=== PATIENT | male | born 1955 | race Caucasian/White ===

== ENCOUNTER 2017-03-05 12:09 | Inpatient (IN) | payer OTHER ==
--- NOTE | ~2017-03-05 | PRECARD ---
H&P [facility] [address] [place]. [address] NAME: FINN OROZCO JR : 53 STATUS : ADM IN [facility]#: [id number] AGE: 61 ADM/REG DATE : 03/05/17 MR#: [id number] REPORT SERV DATE: 03/05/17 DICTATED BY: ERICKA SADLER DATE: 03/05/17 REPORT STATUS : Draft TRANSCRIBED BY: SESAR DATE: 03/05/17 DATE OF ADMISSION: 03/05/2017 CHIEF COMPLAINT: Chest pain. REASON FOR ADMISSION: Chest pain. SOURCE: The patient and chart. HISTORY OF PRESENT ILLNESS: Mr. Orozco is a very pleasant 61-year-old, white man with no prior cardiac history, who was in his usual state of health until the last few days, when he has been feeling bad off and on. Today, he had an episode of wateriness, indigestion, and headache, and blood pressure up to 210/118. He called his , who brought him to the emergency room. He was having chest pain, described as burning substernal up to 4/10 in severity without radiation, associated with nausea, but no vomiting, dyspnea, or diaphoresis. He did have some shortness of breath. He came to [facility] emergency room and was found to have a troponin of 0.76 and was admitted for further care. He reports the pain has gone down to about 2/10 now. He has had some fatigue and shortness of breath. He is comfortable, lying in bed. REVIEW OF SYSTEMS: All other systems are negative. ALLERGIES: NSAIDS, IRRITATED STOMACH. MEDICATIONS: As per his home list include calcium, Celebrex, vitamin D, Flexeril, Benadryl, glucosamine, Atarax, Hyzaar, magnesium, melatonin, Nasonex, Dulera, Percocet, potassium, Lyrica, vitamin B2, Zoloft, vitamin E, garlic, and lipoflavonoids. CARDIAC RISK FACTORS: Include hypertension, cholesterol, former tobacco, and positive family history. Denied diabetes. PAST MEDICAL HISTORY: Significant for stomach ulcers, treated with medications thirty years ago. Kidney stones, requiring surgery, two knee surgeries on each knee, torn meniscus, status post bilateral carpal tunnel release, rotator cuff bilaterally, for or five back surgeries, status post tonsillectomy. No prior cardiac problems. SOCIAL HISTORY: The patient lives in [place]. He is . He has two children, alive, and well. 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 FAMILY HISTORY: Father of congestive heart failure in his 70s, but first had heart disease in his 50s including coronary artery bypass grafting. PHYSICAL EXAMINATION: GENERAL: Well-developed, well-nourished elderly white man, in no acute distress. VITAL SIGNS: Stable. Grossly afebrile. Blood pressure is now 145/94, pulse 73, [facility]P [facility] [address] [facility] [place]. [address] NAME: FINN OROZCO JR : 53 STATUS : ADM IN [facility]#: [id number] AGE: 61 ADM/REG DATE : 03/05/17 MR#: [id number] REPORT SERV DATE: 03/05/17 DICTATED BY: ERICKA SADLER DATE: 03/05/17 REPORT STATUS : Draft TRANSCRIBED BY: SESAR DATE: 03/05/17 temperature 97.2, weight is 102 kg. HEENT: Sclerae anicteric. Lips without cyanosis. Carotids 2+ and symmetrical. No bruits. No JVD. No thyromegaly. LUNGS: Clear to auscultation. No use of accessory muscles. HEART: Regular rate and rhythm without murmur, gallop, or rub. ABDOMEN: Positive bowel sounds. Soft, nontender. Obese. EXTREMITIES: Pulses 2+ and symmetrical. No cyanosis, clubbing, or edema. He has normal Jaxon and reverse Jaxon test in the right arm. BACK: No CVA tenderness. MUSCULOSKELETAL: Good tone. NEURO: Alert and oriented x3. LABORATORY EXAMINATION: Sodium 140, potassium 3.7, chloride 105, CO2 26, glucose 93, BUN 12, creatinine 0.96, troponin of 0.76. He also has an AST 96, ALT 119, alkaline phosphatase 94, total bilirubin 0.7. The chest x-ray, tortuous ectatic aorta, otherwise negative AP portable chest. The BNP is 46. The white count is 5.4, hemoglobin 15.8, hematocrit 44.6, platelets 174,000. INR 1.0. EKG reveals sinus rhythm, normal axis and intervals, LVH by voltage. Nonspecific ST changes. IMPRESSION: 1. Suspected naz-ID-hrtvvyr elevation myocardial infarction. 2. Hypertension, under better control. 3. Hyperlipidemia. 4. Former tobacco use. 5. Family history of coronary artery disease. 6. Obesity. 7. Status post back surgeries. RECOMMENDATIONS: 1. Aspirin, nitrates, heparin already given. 2. Beta blockers, already given. 3. Empiric statin therapy. 4. Cardiac catheterization, possible angioplasty. The risks, benefits, and complications were discussed with the patient. He understands them and those of his alternatives and wishes to proceed. Questions answered. Plan in a.m. If he remains stable, he would be a candidate for the right radial approach. He has normal Jaxon and reverse Jaxon test in the right arm. He would be a candidate for drug-eluting stent if needed. DUTCH/SESAR Ericka Sadler M.D. / [id number] H&P [address] [address] NAME: FINN OROZCO : 53 STATUS : ADM IN [facility]#: [id number] AGE: 61 ADM/REG DATE : 03/05/17 MR#: [id number] REPORT SERV DATE: 03/05/17 DICTATED BY: ERICKA SADLER DATE: 03/05/17 REPORT STATUS : Draft TRANSCRIBED BY: SESAR DATE: 03/05/17 CC: Analilia Bauman M.D.
[2017-03-05 13:15] LABS: BASOPHILS 0.3 %; BASOPHILS ABSOLUTE 0.03 10/3/uL (0.0-0.16); EOSINOPHILS 1.2 %; EOSINOPHILS ABSOLUTE 0.11 10/3/uL (0.0-0.53); ER CBC TAT 0 Hrs 07 Mins; HEMATOCRIT 44.6 % (40.0-51.0); HEMOGLOBIN 15.8 g/dL (13.6-17.8); IMMATURE GRANULOCYTES 0.4 %; IMMATURE GRANULOCYTES ABSOLUTE 0.04 10/3/uL (0.0-0.11); LYMPHOCYTES 24.7 %; LYMPHOCYTES ABSOLUTE 2.33 10/3/uL (0.67-4.30); MEAN CORPUS HGB CONC 35.4 g/dL (32.0-36.0); MEAN CORPUSCULAR HEMOGLOB 34.3 pg (26.0-34.0); MEAN CORPUSCULAR VOLUME 96.7 fL (80-100); MEAN PLATELET VOLUME 10.1 fL (9.2-13.0); MONOCYTES ABSOLUTE 0.94 10/3/uL (0.21-1.20); NEUTROPHILS 63.4 %; NEUTROPHILS ABSOLUTE 5.99 10/3/uL (2.02-8.40); PLATELET COUNT 174 10/3/uL (150-400); RBC DISTRIBUTION WIDTH 12.8 % (12.0-16.0); RED CELL COUNT 4.61 10/6/uL (4.7-6.1); WHITE BLOOD CELLS 9.4 10/3/uL (4.5-10.5)
[2017-03-05 13:16] LABS: MANUAL DIFF NO %
[2017-03-05 13:20] LABS: PROTIME (NOT ORD) 12.9 SEC (12.0-14.5)
[2017-03-05 13:29] LABS: A/G RATIO 1.2 (0.7-1.9); ALBUMIN 4.1 G/DL (3.5-5.0); ALKALINE PHOSPHATASE 94 U/L (45-117); BUN (BLOOD UREA NITROGEN) 12 MG/DL (6-23); CHLORIDE, SERUM 105 MMOL/L (96-112); CO2 (CARBON DIOXIDE) 26 MMOL/L (24-34); CREATININE 0.96 MG/DL (0.70-1.30); GFR AFRICAN AMERICAN 98 ML/MIN (>=60); GFR NON AFRICAN AMERICAN 84 ML/MIN (>=60); GLOBULIN 3.4 G/DL (2.5-4.1); GLUCOSE, SERUM 93 MG/DL (60-99); POTASSIUM, SERUM 3.7 MMOL/L (3.5-5.3); SGOT(AST) 96 U/L (5-40); SGPT(ALT) 119 U/L (5-65); SODIUM, SERUM 140 MMOL/L (135-148); TOTAL BILIRUBIN 0.7 MG/DL (0-1.2); TOTAL PROTEIN 7.5 G/DL (6.0-8.5)
[2017-03-05 13:57] LABS: TROPONIN I 0.76 NG/ML (<0.05)
[2017-03-05] MEDS ORDERED: AT25 PO (14:36)
[2017-03-05] MEDS ORDERED: MELATONIN10 M2 PO (14:37)
[2017-03-05] MEDS ORDERED: CELEBREX2 PO (14:37)
[2017-03-05] MEDS ORDERED: FLEX PO (14:37)
[2017-03-05] MEDS ORDERED: HYZAAR 50/12.51 TAB PO (14:37)
[2017-03-05] MEDS ORDERED: ZOL50 PO (14:37)
[2017-03-05] MEDS ORDERED: DULERA 200 MCG/13 GM INH (14:38)
[2017-03-05] MEDS ORDERED: PERCOCET 10/3251 TAB PO (14:38)
[2017-03-05] MEDS ORDERED: NASONEX NAS (14:38)
[2017-03-05] MEDS ORDERED: VITE PO (14:38)
[2017-03-05] MEDS ORDERED: GLUCCHONDR PO (14:38)
[2017-03-05] MEDS ORDERED: POTASSIUM GLUCO99 MG PO (14:39)
[2017-03-05] MEDS ORDERED: CALTRAT600 PO (14:39)
[2017-03-05] MEDS ORDERED: MAG OXIDE250 MG PO (14:39)
[2017-03-05] MEDS ORDERED: GARLIC PO (14:39)
[2017-03-05] MEDS ORDERED: VITAMIN B-2100 MG PO (14:40)
[2017-03-05] MEDS ORDERED: BEN25 PO (14:40)
[2017-03-05] MEDS ORDERED: LIPOFLAVONOID PO (14:40)
[2017-03-05] MEDS ORDERED: VITAMIN D1000 UNI1 PO (14:40)
[2017-03-05] MEDS ORDERED: LYRICA75 PO (14:41)
[2017-03-05 20:49] LABS: TROPONIN I 5.39 NG/ML (<0.05)
[2017-03-05 21:04] LABS: CK-MB 36.4 NG/ML
[2017-03-05 21:05] LABS: CKMB INDEX (NOT ORD) 9.9
[2017-03-06 06:22] LABS: INTERNATIONAL NORMAL RATI 1.1 UNITS (-); PROTIME (NOT ORD) 13.7 SEC (12.0-14.5)
[2017-03-06 06:23] LABS: PARTIAL THROMBO TIME 69.7 SEC (22.5-37.2)
[2017-03-06 06:25] LABS: BASOPHILS 0.4 %; BASOPHILS ABSOLUTE 0.04 10/3/uL (0.0-0.16); EOSINOPHILS 1.9 %; EOSINOPHILS ABSOLUTE 0.19 10/3/uL (0.0-0.53); HEMATOCRIT 39.6 % (40.0-51.0); HEMOGLOBIN 13.9 g/dL (13.6-17.8); IMMATURE GRANULOCYTES 0.5 %; IMMATURE GRANULOCYTES ABSOLUTE 0.05 10/3/uL (0.0-0.11); LYMPHOCYTES 27.4 %; LYMPHOCYTES ABSOLUTE 2.78 10/3/uL (0.67-4.30); MANUAL DIFF NO %; MEAN CORPUS HGB CONC 35.1 g/dL (32.0-36.0); MEAN CORPUSCULAR HEMOGLOB 34.9 pg (26.0-34.0); MEAN CORPUSCULAR VOLUME 99.5 fL (80-100); MEAN PLATELET VOLUME 9.9 fL (9.2-13.0); MONOCYTES 9.4 %; MONOCYTES ABSOLUTE 0.95 10/3/uL (0.21-1.20); NEUTROPHILS 60.4 %; NEUTROPHILS ABSOLUTE 6.13 10/3/uL (2.02-8.40); PLATELET COUNT 148 10/3/uL (150-400); RBC DISTRIBUTION WIDTH 12.7 % (12.0-16.0); RED CELL COUNT 3.98 10/6/uL (4.7-6.1); WHITE BLOOD CELLS 10.1 10/3/uL (4.5-10.5)
[2017-03-06 06:37] LABS: A/G RATIO 1.3 (0.7-1.9); ALBUMIN 3.6 G/DL (3.5-5.0); BUN (BLOOD UREA NITROGEN) 15 MG/DL (6-23); CALCIUM, SERUM 9.1 MG/DL (8.5-10.4); CHLORIDE, SERUM 102 MMOL/L (96-112); CHOL/HDL RATIO(NOT ORDER) 3.8 (0-5); CHOLESTEROL 163 MG/DL (< 200); CO2 (CARBON DIOXIDE) 27 MMOL/L (24-34); CREATININE 1.04 MG/DL (0.70-1.30); GFR AFRICAN AMERICAN 89 ML/MIN (>=60); GFR NON AFRICAN AMERICAN 77 ML/MIN (>=60); GLOBULIN 2.8 G/DL (2.5-4.1); HDL CHOLESTEROL 43 MG/DL (> 39); LDL CHOLESTEROL 73 MG/DL (< 130); NON-HDL CHOLESTEROL 120 MG/DL (< 160); POTASSIUM, SERUM 3.7 MMOL/L (3.5-5.3); SGOT(AST) 110 U/L (5-40); SGPT(ALT) 109 U/L (5-65); SODIUM, SERUM 137 MMOL/L (135-148); TOTAL BILIRUBIN 0.8 MG/DL (0-1.2); TOTAL PROTEIN 6.4 G/DL (6.0-8.5); TRIGLYCERIDE 237 MG/DL (< 150)
[2017-03-06 06:39] LABS: ALKALINE PHOSPHATASE 80 U/L (45-117); GLUCOSE, SERUM 125 MG/DL (60-99)
[2017-03-07] MEDS ORDERED: LIPITOR40 PO (14:15)
[2017-03-07] MEDS ORDERED: PLAVIX PO (14:15)
[2017-03-07] MEDS ORDERED: COREG25 PO (14:16)
[2017-03-07] MEDS ORDERED: NTG150 SL (14:16)
[2017-03-07] MEDS ORDERED: [UNRECOGNIZED DRUG - REMARK] (14:50)
[2017-03-07] MEDS ORDERED: ASAB PO (14:54)
== END 2017-03-07 15:10 | disposition home or self-care (01) | DRG 282 ==
LOC: ER 12:09 → 5NO 15:22 → SSU2 03-06 09:10 → SSU1 03-06 21:45
PROVIDERS: Emergency Medicine; Internal Medicine Cardiovascular Disease
PROC: 4A023N7 Measurement of Cardiac Sampling and Pressure, Left Heart, Percutaneous Approach (ICD-10-PCS; principal; 2017-03-05)
PROC: B2111ZZ Fluoroscopy of Multiple Coronary Arteries using Low Osmolar Contrast (ICD-10-PCS; 2017-03-05)
PROC: B2151ZZ Fluoroscopy of Left Heart using Low Osmolar Contrast (ICD-10-PCS; 2017-03-05)
DX: I21.4 Non-ST elevation (NSTEMI) myocardial infarction (principal); Z95.1 Presence of aortocoronary bypass graft; J44.9 Chronic obstructive pulmonary disease, unspecified; E78.5 Hyperlipidemia, unspecified; E78.00 Pure hypercholesterolemia, unspecified; E66.9 Obesity, unspecified; I16.0 Hypertensive urgency; F10.10 Alcohol abuse, uncomplicated; G47.33 Obstructive sleep apnea (adult) (pediatric); E78.1 Pure hyperglyceridemia; Z79.899 Other long term (current) drug therapy; Z87.891 Personal history of nicotine dependence; Z82.49 Family history of ischemic heart disease and other diseases of the circulatory system; Z87.11 Personal history of peptic ulcer disease; Z87.442 Personal history of urinary calculi
CPT/HCPCS: 71010; 76705; 80053; 80061; 82550; 82553; 83880; 84484; 85025; 85347; 85610; 85730; 93005; 93458; 94640; 96374; 99152; 99153; 99285; A9270-GY; C1725; C1769; C1874; C1887; C1894; C9600; J2250; J2405; J3010; J3411; Q9967